=== PATIENT | female | born 1960 | race Caucasian/White ===

== ENCOUNTER → 2016-10-13 | Outpatient (CLI) | payer BC, OTHER ==
[~2016-10-13] MED LIST: BELVIQ10 MG PO; CLIMARA PRO PA1 EACH TD; FLONASE 0.05%50 MCG SPRAY; HORMONE PATCH TRANSDERM; PATADAY2.5 ML OPHTHALMIC
== END ==
LOC: RAD 08:23
DX: Z12.31 Encounter for screening mammogram for malignant neoplasm of breast (principal)

== ENCOUNTER → 2017-12-02 | Outpatient (CLI) | payer BC, OTHER | LOC: RAD 02:37 | DX: Z12.31 Encounter for screening mammogram for malignant neoplasm of breast (principal) ==

== ENCOUNTER → 2018-12-08 | Outpatient (CLI) | payer BC, OTHER | LOC: RAD 01:06 | DX: Z12.31 Encounter for screening mammogram for malignant neoplasm of breast (principal) ==

== ENCOUNTER → 2018-12-10 | Outpatient (CLI) | payer BC, OTHER | LOC: BC 03:48 | DX: N63.11 Unspecified lump in the right breast, upper outer quadrant (principal) ==

== ENCOUNTER → 2019-06-17 | Outpatient (CLI) | payer BC, OTHER | LOC: RAD 10:02 | DX: N63.10 Unspecified lump in the right breast, unspecified quadrant (principal); R92.2 Inconclusive mammogram ==

== ENCOUNTER → 2020-02-27 | Outpatient (CLI) | payer BC, OTHER | LOC: BC 10:45 | DX: Z12.31 Encounter for screening mammogram for malignant neoplasm of breast (principal) ==

== ENCOUNTER 2020-03-17 17:19 | Emergency (ER) | payer BC ==
[~2020-03-17] VITALS: Ht 162.6 cm; Wt 63.5 kg
[2020-03-17 18:48] LABS: ABSOLUTE NEUTROPHILS 4.4 thou/uL (1.4-8.2); BASOPHILS 0.5 % (0.0-2.0); EOSINOPHILS 2.2 % (0.0-3.0); HEMATOCRIT 40.2 % (37.0-47.0); HEMOGLOBIN 13.6 gm/dL (12.0-15.0); LYMPHOCYTES 29.6 % (24.0-44.0); MCH 31.8 pg (26.0-34.0); MCHC 33.8 g/dL (28.0-37.0); MCV 93.9 fL (80.0-100.0); MONOCYTES 8.2 % (1.0-8.0); PLATELET COUNT 364 thou/uL (150-400); POLYS 59.5 % (36.0-66.0); RBC 4.28 mil/uL (4.20-5.00); RDW 13.3 % (10.5-14.5); WBC 7.4 thou/uL (4.0-11.0)
[2020-03-17 18:58] LABS: ANION GAP 6 mmol/L (7-16); BUN 16 mg/dL (7-18); CALCIUM 9.1 mg/dL (8.5-10.1); CHLORIDE 105 mmol/L (98-107); CO2 30 mmol/L (21-32); CREATININE 1.1 mg/dL (0.6-1.0); GLUCOSE 93 mg/dL (74-106); POTASSIUM 3.4 mmol/L (3.5-5.1); SODIUM 141 mmol/L (136-145)
[2020-03-17 19:08] LABS: ALBUMIN 3.6 g/dL (3.4-5.0); SGOT 21 U/L (15-37); SGPT 21 U/L (30-65); TOTAL BILIRUBIN 0.3 mg/dL (0.2-1.0); TOTAL PROTEIN 6.7 g/dL (6.4-8.2); TROPONIN-I <0.06 ng/mL (<0.06)
[2020-03-17 19:10] LABS: DIRECT BILIRUBIN < 0.1 mg/dL (<0.1-0.2)
[2020-03-17] MEDS ORDERED: MOBIC15 MG PO (20:05)
[2020-03-17 20:23] VITALS: BP 109/57
--- NOTE | 2020-03-18 11:02 | EKG ---
[facility] [place] [address] ELECTROCARDIOGRAM REPORT Name: KRISTIE YAP Room #: DEP [facility]#: [id number] Admission: 03/17/20 Attend Phys: Discharge: 03/17/20 Date of : 62 Report #: [id number] THIS REPORT FOR: cc: Dawti Freeman James A. DO Couchonnal, Luis F. MD ~ THIS REPORT FOR: //name// [facility] ED Test Date: 2020-03-17 Test Time: 18:44:16 Pat Name: KRISTIE YPA Department: Room: Gender: F [employer]: blossom : 1960 Requested By: Deja Pugh Order Number: [id number] MD: Duane Marino Measurements Intervals Springer Rate: 71 P: 59 OR: 147 QRS: 17 QRSD: 106 T: 36 QT: 388 QTc: 422 Interpretive Statements Sinus rhythm Abnormal R-wave progression, early transition Compared to ECG 07/02/2015 08:43:59 Sinus bradycardia no longer present Electronically Signed On 03-18-2020 11:01:38 CDT by Duane Marino [email or web address] <ELECTRONICALLY SIGNED> By: Duane Marino MD 03/18/20 1101 43 43 Duane Marino MD /EPI
== END 2020-03-17 20:24 | disposition home or self-care (01) ==
LOC: ER 17:19
PROVIDERS: Emergency Medicine
DX: R07.89 Other chest pain (principal); Z88.0 Allergy status to penicillin; Z79.899 Other long term (current) drug therapy

== ENCOUNTER → 2020-12-27 | Outpatient (CLI) | payer BC, OTHER ==
[~2020-12-27] VITALS: Ht 162.6 cm; Wt 68.0 kg
[~2020-12-27] MED LIST changes: +ALLERGY EYE DRO10 M1 OPHTHALMIC; +CALCIUM + VITA1 EACH PO; +CELEBREX 200 M200 MG PO; +MOBIC15 MG PO; +QNASL10.6 GM NASAL; +SUPER THERAVIT1 EACH PO
[2020-12-27 09:40] VITALS: BP 126/83
--- NOTE | 2020-12-27 10:21 | NUR ---
Pain Clinic Assessment: 1. History of Osteoarthritis: Not Applicable History of Rheumatoid Arthritis: Right Lower Extremity Left Upper Extremity 2. Height: 5 ft. 4 in. 162.6 cm. Weight: 150.0 lb. oz. 68.040 kg. Patient's BMI: 25.7 3. Vital Signs: BP: 126/83 Pulse: 63 Resp: 16 Temp: 02 Sat: 100 ECG Mon: 4. Pain Intensity: 3 IN AM 8 IN PM 5. Fall Risk: Dizziness: N Needs help standing or walking: N Fallen in the last 3 months: N Fall risk comments: 6. Patient on Blood Thinner: None 7. History of Hypertension: N 8. Opioid Therapy greater than 6 weeks: N Opiate Contract Signed: 9. Risk Assessment Tool Provided: LOW 10. Functional Assessment Tool: 11. Recreational Drug Use: Never Drug Type: Tobacco Use: Never Smoker Tobacco Type: Amount or Packs/day: How Many Years: Alcohol Use: Yes Frequency: Weekly Quant: 2-4
== END ==
LOC: PAIN 06:53
PROVIDERS: ATTEND Anesthesiology Pain Medicine
DX: M48.00 Spinal stenosis, site unspecified (principal); M54.2 Cervicalgia; R20.2 Paresthesia of skin; M79.10 Myalgia, unspecified site

== ENCOUNTER → 2020-12-31 | Outpatient (CLI) | payer BC, OTHER ==
[~2020-12-31] VITALS: Ht 162.6 cm; Wt 69.9 kg
[2020-12-31 13:08] VITALS: BP 109/76
--- NOTE | 2020-12-31 13:19 | NUR ---
Pain Clinic Assessment: 1. History of Osteoarthritis: Not Applicable History of Rheumatoid Arthritis: Right Lower Extremity Left Upper Extremity 2. Height: 5 ft. 4 in. 162.6 cm. Weight: 154.2 lb. oz. 69.945 kg. Patient's BMI: 26.5 3. Vital Signs: BP: 109/76 Pulse: 66 Resp: 14 Temp: 02 Sat: 99 ECG Mon: 4. Pain Intensity: 4-5 NOW THEN INCREASES 7 5. Fall Risk: Dizziness: N Needs help standing or walking: N Fallen in the last 3 months: N Fall risk comments: 6. Patient on Blood Thinner: None 7. History of Hypertension: N 8. Opioid Therapy greater than 6 weeks: N Opiate Contract Signed: 9. Risk Assessment Tool Provided: JULIAN 10. Functional Assessment Tool: 11. Recreational Drug Use: Never Drug Type: Tobacco Use: Never Smoker Tobacco Type: Amount or Packs/day: How Many Years: Alcohol Use: Yes Frequency: Weekly Quant: 2
== END ==
LOC: PAIN 07:36
PROVIDERS: ATTEND Anesthesiology Pain Medicine
DX: M54.2 Cervicalgia (principal); M79.18 Myalgia, other site; S13.4XXA Sprain of ligaments of cervical spine, initial encounter; X58.XXXA Exposure to other specified factors, initial encounter; Y93.89 Activity, other specified; Y92.89 Other specified places as the place of occurrence of the external cause; Z88.0 Allergy status to penicillin

== ENCOUNTER → 2021-08-06 | Outpatient (CLI) | payer BC, OTHER | LOC: BC 10:53 | PROVIDERS: ATTEND Obstetrics & Gynecology | DX: Z12.31 Encounter for screening mammogram for malignant neoplasm of breast (principal); N64.89 Other specified disorders of breast ==